=== PATIENT | male | born 1950 | race Caucasian/White ===

== ENCOUNTER 2020-12-10 16:18 | Emergency (ER) | payer MEDICARE ==
[2020-12-10 19:25] LABS: HEMOGLOBIN 15.6 gm/dl (14.0-17.5); RED BLOOD COUNT 5.2 M/UL (4.20-5.50); WHITE BLOOD COUNT 9.3 K/UL (4.5-11.0)
[2020-12-10 19:58] LABS: BUN/CREATININE RATIO 16 (0-10)
[2020-12-10] MEDS ORDERED: LOMOTIL 2.5-0.1 EACH PO (20:24)
[2020-12-10] MEDS ORDERED: FLORASTOR250 MG PO (20:24)
== END 2020-12-10 21:10 | disposition home or self-care (01) ==
LOC: ER1 16:18
PROVIDERS: Emergency Medicine
DX: R10.9 Unspecified abdominal pain (principal); R19.7 Diarrhea, unspecified; I10 Essential (primary) hypertension; E78.5 Hyperlipidemia, unspecified; E03.9 Hypothyroidism, unspecified
CPT/HCPCS: 80053; 81001; 85025; 99284

== ENCOUNTER → 2021-01-17 | Outpatient (CLI) | payer MEDICARE ==
[~2021-01-17] MED LIST: FLORASTOR250 MG PO; LOMOTIL 2.5-0.1 EACH PO
== END ==
LOC: KOH-I 12:41
DX: M51.16 Intervertebral disc disorders with radiculopathy, lumbar region (principal); M54.5 Low back pain
CPT/HCPCS: 72148